=== PATIENT | female | born 1940 | race Caucasian/White ===

== ENCOUNTER 2016-08-18 11:57 | Day surgery (SDC) | payer MEDICARE, BC ==
[~2016-08-18 11:57] MED LIST: Lactated Ringers 1,000 ML IV SCH; Lidocaine 1%/Sod Bicarbonate in NS 8.4% 1 ML Syringe IV PRN; Sodium Chloride 0.9% 10 ML Syringe FLUSH PRN
--- NOTE | 2016-08-18 14:19 | PCM.PREANE ---
Preanesthetic Assessment - Physical Assessment Height: 1.63 m Weight: 97.522 kg - Allergies Allergies/Adverse Reactions: Allergies Allergy/AdvReac Type Severity Reaction Status Date / Time adhesive Allergy Unknown Rash Verified 02/28/15 05:52 latex Allergy Rash Verified 08/17/16 15:47 PreAnesthesia Questionnaire HEENT History: Reports: Other (see below) Other HEENT History: has dentures Cardiovascular History: Reports: Automatic implantable cardioverter defibrillators, CAD, Heart Failure, High cholesterol, Hypertension, Pacemaker ( AICD), PTCA (No stents inserted about 5 years ago) Other Cardiovascular History: chest pain, ischemic heart disease, pulmonary HTN , valvular heart disease, mitral regurgitation, aortic regurgitation and stenosis, ischemic cardiomyopathy, peripheral edema Respiratory History: Reports: SOB Other Respiratory History: shortness of breath with exertion Gastrointestinal History: Reports: Other (see below) Other Gastrointestinal History: polyps, tubular adenomatous colon polyps, diverticulosis Genitourinary History: Reports: Renal disease Other Genitourinary History: urinary urgency, cystocele, CKD III, chroic renal impairment Other OB/BYN History: hysterectomy Musculoskeletal History: Reports: Osteoarthritis, Other (see below) Other Musculoskeletal History: osteopenia, Left and right total hip, bilateral knee replacement Neurological History: Reports: None Psychiatric History: Reports: None Endocrine/Metabolic History: Reports: Diabetes, type II, Hypothyroidism Hematologic History: Reports: Blood transfusion(s) Immunologic History: Reports: None Oncologic (Cancer) History: Reports: Colon Dermatologic History: Reports: None - Past Surgical History HEENT Surgical History: Reports: Cataract surgery Other HEENT Surgeries/Procedures: use of dentures Cardiovascular Surgical History: Reports: AICD, Pacer GI Surgical History: Reports: Colonoscopy, Polypectomy Other GI Surgeries/Procedures: Colonoscopy with polypectomy, partial colectomy Female Surgical History: Reports: Hysterectomy Other Musculoskeletal Surgeries/Procedures:: Bilateral hip replacement, bilateral knee replacement - SUBSTANCE USE Smoking Status *Q: Never Smoker Second Hand Smoke Exposure: No Days Per Week of Alcohol Use: 0 Recreational Drug Use History: No - HOME MEDS Home Medications: Home Meds Allopurinol [Zyloprim] 100 mg PO DAILY 02/18/15 [History] Aspirin [Low Dose Aspirin EC] 81 mg PO DAILY 02/18/15 [History] Carvedilol [Coreg] 3.125 mg PO BID 02/18/15 [History] Furosemide 40 mg PO DAILY 02/18/15 [History] Levothyroxine 112 mcg PO DAILY 02/18/15 [History] Potassium Chloride 10 meq PO DAILY 02/18/15 [History] Ramipril [Altace] 10 mg PO DAILY 02/18/15 [History] buPROPion [Wellbutrin XL] 150 mg PO DAILY 02/18/15 [History] glipiZIDE [Glipizide ER] 2.5 mg PO DAILY 02/18/15 [History] Cholecalciferol (Vitamin D3) [Vitamin D3] 5,000 units PO DAILY 08/17/16 [History ] Methylcellulose [Citrucel] 500 mg PO DAILY 08/17/16 [History] atorvaSTATin [Lipitor] 10 mg PO DAILY 08/17/16 [History] - CURRENT (IN HOUSE) MEDS Current Meds: Current Medications Lactated Ringer's (Ringers, Lactated) 1,000 mls @ 125 mls/hr IV ASDIRECTED MARIANNE Stop: 08/18/16 23:00 Lidocaine/Sodium Bicarbonate (Buffered Lidocaine 1% In Ns 8.4%) 0.25 ml IV ONETIME PRN PRN Reason: Prior to IV Start Stop: 08/18/16 18:00 Sodium Chloride (Saline Flush) 10 ml FLUSH ASDIRECTED PRN PRN Reason: Keep Vein Open Stop: 08/18/16 18:00 Preanesthetic Assessment - ANESTHESIA/TRANSFUSION/FAMILY HX Anesthesia/Transfusion History: Prior Anesthesia (no problems), Prior Transfusion (no problems) Type of Anesthesia Reaction: Reports: Unknown Family History of Anesthesia Reaction: No Intubation History: Unknown Type of Transfusion Reactions: Reports: Unknown - REVIEW OF SYSTEMS Constitutional: Reports: no symptoms HIDE SORTER: Reports: no symptoms Respiratory: Reports: no symptoms Cardiovascular: Reports: blood pressure problem GI: Reports: no symptoms Other: Reports: Easy Bruising, Diabetes, Thyroid Problems (hypothyroidism ) - PHYSICAL ASSESSMENT HR: 70 O2 Sat by Pulse Oximetry: 93 RR: 18 BP: 124/58 Temp: 36.3 C Height: 1.63 m Weight: 97.522 kg NPO Status Date: 08/17/16 NPO Status Time: 22:00 ASA Class: 3 Mental Status: Alert & Oriented x3 Airway Class: Mallampati = 2 Dentition: Reports: Dentures (upper and lower ) Thyro-Mental Finger Breadths: 3 Mouth Opening Finger Breadths: 3 ROM/Head Extension: Full Respiratory Status: lungs clear to auscultation bilaterally Cardiovascular Status: regular rate & rhythm, normal S1, S2, no murmur, blood pressure WNL - ALLERGIES Allergies/Adverse Reactions: Allergies Allergy/AdvReac Type Severity Reaction Status Date / Time adhesive Allergy Unknown Rash Verified 02/28/15 05:52 latex Allergy Rash Verified 08/17/16 15:47 - BLOOD Blood Available: No Product(s) Available: None - ANESTHESIA PLAN Preop Beta Ramon: Yes Beta Ramon: Carvedilol Beta-Ramon Last Dose Date: 08/17/16 Beta-Ramon Last Dose Time: 07:00 Anesthesia Type Planned: MAC - ACKNOWLEDGEMENTS Pt an Appropriate Candidate for the Planned Anesthesia: Yes Alternatives and Risks of Anesthesia Discussed w Pt/Guardian: Yes Pt/Guardian Understands and Agrees with Anesthesia Plan: Yes
--- NOTE | 2016-08-18 14:46 | PCM.HP ---
H&P History of Present Illness - General Date of Service: 08/18/16 Admit Problem/Dx: Surveillance Colonoscopy HPI: The patient is a 75-year-old female known to the clinic. Her PCP is Dr. Priyanka Ruiz. She has a personal hx of colon cancer and colon polyps. I last saw the patient 06/21/16. she reports no major health changes since that time. She has followed up with cardiology and [facility] prior to endoscopy. she did complete the prep. Reports blood glucose was a bit higher this am at 135 due to use of fruit juice with prep. She is due for a surveillance colonoscopy. In 01/2015 hx of colonoscopy with polypectomy and findings of extensive diverticular disease of descending and sigmoid colon. Painless massive lower GI bleeding after procedure. Repeat colonoscopy after-found No obvious bleeding from polypectomy site. Small clot on large polypectomy site in the rectum. Multiple clots in descending colon, extending from diverticulum. A thrombin enema and injection of epinephrine to the rectal polypectomy site. She did receive 3 units of PRBCs. She had a tubular adenoma found on 01/[address] Mckinnon recommended a one year follow up colonoscopy. Recent colonoscopy hx: Surveillance colonoscopy 06/2013: multiple sessile polyps Surveillance colonoscopy 02/19/15: multiple tubular adenomatous colon polyps( cecal, descending, sigmoid, rectal), diverticulosis Dx of colonoscopy with injection, gold probe cautery, and thrombin enema 02/28/15 -diverticular vs. post polypectomy bleeding. The patient denies any constipation/ diarrhea/ hematochezia/ melena/blood on tissue paper/hemorrhoids. Has 1-2 soft, brown, formed, BMs daily. Bowel movements are described as regular and easy to pass. No unintentional weight loss. No change in stool caliber. Denies history of ulcerative colitis or Crohn' s disease. Denies any family history of inflammatory bowel disease or GI cancers. Last colonoscopy was 2014. Personal hx of colon cancer 1999 or 2000. No longer follows with oncology. Surgical intervention only, no chemotherapy or radiation. No history of reflux, heartburn, nausea, vomiting, or dysphagia. Last mammogram was 2015, negative. NO: Family hx of breast cancer Source of Information: Patient History Limitations: Reports: No limitations - Related Data Allergies/Adverse Reactions: Allergies Allergy/AdvReac Type Severity Reaction Status Date / Time adhesive Allergy Unknown Rash Verified 08/18/16 14:35 latex Allergy Rash Verified 08/18/16 14:35 Home Medications: Home Meds Allopurinol [Zyloprim] 100 mg PO DAILY 02/18/15 [History] Aspirin [Low Dose Aspirin EC] 81 mg PO DAILY 02/18/15 [History] Carvedilol [Coreg] 3.125 mg PO BID 02/18/15 [History] Furosemide 40 mg PO DAILY 02/18/15 [History] Levothyroxine 112 mcg PO DAILY 02/18/15 [History] Potassium Chloride 10 meq PO DAILY 02/18/15 [History] Ramipril [Altace] 10 mg PO DAILY 02/18/15 [History] buPROPion [Wellbutrin XL] 150 mg PO DAILY 02/18/15 [History] glipiZIDE [Glipizide ER] 2.5 mg PO DAILY 02/18/15 [History] Cholecalciferol (Vitamin D3) [Vitamin D3] 5,000 units PO DAILY 08/17/16 [History ] Methylcellulose [Citrucel] 500 mg PO DAILY 08/17/16 [History] atorvaSTATin [Lipitor] 10 mg PO DAILY 08/17/16 [History] Past Medical History HEENT History: Reports: Other (see below) Other HEENT History: has dentures Cardiovascular History: Reports: Automatic implantable cardioverter defibrillators, CAD, Heart Failure, High cholesterol, Hypertension, Pacemaker ( AICD), PTCA (No stents inserted about 5 years ago) Other Cardiovascular History: chest pain, ischemic heart disease, pulmonary HTN , valvular heart disease, mitral regurgitation, aortic regurgitation and stenosis, ischemic cardiomyopathy, peripheral edema Respiratory History: Reports: SOB Other Respiratory History: shortness of breath with exertion Gastrointestinal History: Reports: Other (see below) Other Gastrointestinal History: polyps, tubular adenomatous colon polyps, diverticulosis Genitourinary History: Reports: Renal disease Other Genitourinary History: urinary urgency, cystocele, CKD III, chroic renal impairment Other OB/BYN History: hysterectomy Musculoskeletal History: Reports: Osteoarthritis, Other (see below) Other Musculoskeletal History: osteopenia, Left and right total hip, bilateral knee replacement Neurological History: Reports: None Psychiatric History: Reports: None Endocrine/Metabolic History: Reports: Diabetes, type II, Hypothyroidism Hematologic History: Reports: Blood transfusion(s) Immunologic History: Reports: None Oncologic (Cancer) History: Reports: Colon Dermatologic History: Reports: None - Past Surgical History HEENT Surgical History: Reports: Cataract surgery Other HEENT Surgeries/Procedures: use of dentures Cardiovascular Surgical History: Reports: AICD, Pacer GI Surgical History: Reports: Colonoscopy, Polypectomy Other GI Surgeries/Procedures: Colonoscopy with polypectomy, partial colectomy Female Surgical History: Reports: Hysterectomy Other Musculoskeletal Surgeries/Procedures:: Bilateral hip replacement, bilateral knee replacement Social & Family History - Tobacco Use Smoking Status *Q: Never Smoker Second Hand Smoke Exposure: No - Alcohol Use Days Per Week of Alcohol Use: 0 - Recreational Drug Use Recreational Drug Use: No H&P Review of Systems - Review of Systems: Review Of Systems: See Below Free Text/Narrative: Denies any exertional chest pain. Has exertional shortness of breath. No history of any easy bleeding or bruising. No personal or familial history of clotting or bleeding disorders. No history of anesthetic complications. No history of familial anesthetic complications. Denies chest pain, palpitations. Has hx of lower extremity edema, takes extra doses of Lasix (per PCP or cardiology recommendations) and wears compression stockings. Left leg seems to swell more than right, elevated legs frequently. Cardiology and PCP are aware per patient. NO: dyspnea rest, orthopnea, claudication, wheezing, obstructive sleep apnea, chronic cough, upper respiratory symptoms in the last two weeks. No history of blood thinner use, with the exception of aspirin. The patient 4 total joint replacement. No history of seizure or stroke. No dizziness, light headedness, syncope, near syncope. No history of fever, chills, or nightsweats. Hx of prior cardiology and pulmonology evaluation. Hx of pacemaker replacement 2015. Valvular heart disease follows with cardiology. Did see [facility] and cardiology 12and 6 month follow ups recommended respectively . Device interrogation 07/13. Per cardiology note, "Her device is interrogated today. It is [employer] Viva TRUCK JUMPER-D model. It is set in DDD mode with low rate of 60, upper tracking rate of 130. She has had no ventricular episodes. She had 1 mode switch lasting less than a minute. Her atrial fibrillation (AF) burden is less than 0.1%. Elective replacement indicator (LAURA) is 7.9 years" Hx of CAD, heart block s/p pacemaker and upgrade on 05/2015 (biventricular AICD) , vavlular heart disease. Hx of Pulmonary hypertension 2017 Echo: Conclusion: 1. Left ventricular ejection fraction is 55 to 60%. 2. Impaired left ventricular relaxation with elevated LV filling pressures-( Grade I Diastolic Dysfunction). 3. Mild concentric left ventricular hypertrophy. 4. Mildly enlarged right ventricle. 5. Moderate to severely dilated left atrium. 6. Mildly dilated right atrium. 7. Mild mitral valve regurgitation. 8. Mild mitral stenosis. 9. Moderate tricuspid regurgitation. 10. Mild to moderate aortic valve stenosis. 11. Moderate aortic regurgitation. 12. Mild dilatation of the ascending aorta. 13. Moderately elevated pulmonary artery systolic pressure, estimated at 52.3 mmHg. 14. Compared to previous ECHO from May - LVEF has significantly improved , however AI is worse. General: Reports: no symptoms HEENT: Reports: no symptoms Pulmonary: Reports: No Symptoms Cardiovascular: Reports: no symptoms Gastrointestinal: Reports: No symptoms Genitourinary: Reports: no symptoms Musculoskeletal: Reports: no symptoms Skin: Reports: no symptoms Psychiatric: Reports: no symptoms Neurological: Reports: No Symptoms Hematologic/Lymphatic: Reports: no symptoms Immunologic: Reports: no symptoms Exam - Exam Exam: See Below - Vital Signs Vital Signs: Last Vital Signs Temp 36.3 C 08/18/16 14:30 Pulse 70 08/18/16 14:30 Resp 18 08/18/16 14:30 BP 124/58 L 08/18/16 14:30 Pulse Ox 93 L 08/18/16 14:30 Weight: 97.522 kg - Exam General: alert, oriented HEENT: Conjunctiva clear. No: Scleral icterus Lungs: Clear to auscultation, Normal respiratory effort Cardiovascular: regular rate, regular rhythm, normal S1, normal S2, other ( murmur) Abdomen: normal bowel sounds, soft. No: distention, tenderness Back Exam: normal inspection Extremities: normal inspection, normal pulses, edema (LLE mild/moderate). No: clubbing, cyanosis Skin: warm, dry, intact Neuro Extensive - Mental Status: alert, oriented x3, normal mood/affect, normal cognition, memory intact Psychiatric: alert, normal affect, normal mood *Q Meaningful Use (ADM) - VTE *Q VTE Criteria *Q: - Stroke *Q Stroke Criteria *Q: - AMI *Q AMI Criteria *Q: - Problem List (1) History of adenomatous polyp of colon SNOMED Code(s): 540603102 ICD Code: Z86.010 - PERSONAL HISTORY OF COLONIC POLYPS Status: Acute Current Visit: Yes (2) History of colon cancer SNOMED Code(s): 168815763 ICD Code: Z85.038 - PERSONAL HISTORY OF MALIGNANT NEOPLASM OF LARGE INTESTINE Status: Acute Current Visit: Yes (3) Diverticulosis SNOMED Code(s): 093335595 ICD Code: K57.90 - DVRTCLOS OF INTEST, PART UNSP, W/O PERF OR ABSCESS W/O BLEED Status: Acute Current Visit: Yes Problem List Initiated/Reviewed/Updated: Yes Orders Last 24hrs: Active Orders 24 hr Category Date Time Status Peripheral IV Care [RC] . DIRECTED Care 08/18/16 00:01 Active Verify Patient Consent Obtain [RC] ASDIRECTED Care 08/18/16 00:01 Active Lactated Ringers [Ringers, Lactated] 1,000 ml Med 08/18/16 00:01 Active IV ASDIRECTED Lidocaine 1%/Sod Bicarbonate [Buffered Lidocaine 1% in Med 08/18/16 00:01 Active NS 8.4%] 0.25 ml IV ONETIME PRN Sodium Chloride 0.9% [Saline Flush] Med 08/18/16 00:01 Active 10 ml FLUSH ASDIRECTED PRN Medication Administration Instruction [OM.PC] Routine Oth 08/18/16 00:01 Ordered Peripheral IV Insertion Adult [OM.PC] Routine Oth 08/18/16 00:01 Ordered Medication Orders Lactated Ringer's (Ringers, Lactated) 1,000 mls @ 125 mls/hr IV ASDIRECTED MARIANNE Stop: 08/18/16 23:00 Last Admin: 08/18/16 14:10 Dose: 125 mls/hr Lidocaine/Sodium Bicarbonate (Buffered Lidocaine 1% In Ns 8.4%) 0.25 ml IV ONETIME PRN PRN Reason: Prior to IV Start Stop: 08/18/16 18:00 Last Admin: 08/18/16 14:09 Dose: 0.25 ml Sodium Chloride (Saline Flush) 10 ml FLUSH ASDIRECTED PRN PRN Reason: Keep Vein Open Stop: 08/18/16 18:00 Assessment/Plan Comment:: 75yr female with personal hx of colon cancer, hx of tubular adenomatous colon polyps, extensive diverticular disease, need for surveillance colonoscopy. Denies exertional chest pain. Has exertional shortness of breath. Patient has AICD, ischemic heart disease, valvular heart disease, pulmonary HTN, DM PLAN: We discussed performing a surveillance colonoscopy. We discussed the procedure and post operative expectations. . This procedure will be done today at [facility], due to cardiac history, orders were placed and sent. I personally reviewed the patient's previous medical records and laboratory studies. Patient verbalized understanding and agreed with care plan. MARIELY Boo General Surgery Department [facility]
[2016-08-18] MEDS ORDERED: Propofol 200 MG/20 ML SDV ONE (14:56)
[2016-08-18] MEDS ORDERED: Lidocaine 1% 6 ML ONE (14:56)
[2016-08-18] MEDS ORDERED: fentaNYL 100 MCG/2 ML SDV ONE (14:56)
--- NOTE | 2016-08-18 16:13 | PCM48HPAN ---
Post Anesthesia Note - EVALUATION WITHIN 48HRS OF ANESTHETIC Vital Signs in Normal Range: Yes Patient Participated in Evaluation: Yes Respiratory Function Stable: Yes Airway Patent: Yes Cardiovascular Function Stable: Yes Hydration Status Stable: Yes Pain Control Satisfactory: Yes Nausea and Vomiting Control Satisfactory: Yes Mental Status Recovered: Yes
[2016-08-18 16:42] VITALS: BP 120/59
--- NOTE | 2016-08-21 11:53 | PCM.OPNOTE ---
- General Post-Op/Procedure Note Date of Surgery/Procedure: 08/18/16 Operative Procedure(s): Surveillance colonoscopy with cold forceps polypectomy Pre Op Diagnosis: History of colon polyps, diverticulosis Post-Op Diagnosis: Colon polyps, severe diverticulosis Anesthesia Technique: MAC Primary Surgeon: Annita Mckinnon Anesthesia Provider: Jigna Lemus Pathology: 1. Transverse colon polyps 3 2. Descending colon polyps 2 3. Sigmoid colon polyps 4 4. Rectal polyp Fluid Replacement, Intraop: 600 (mL crystalloid ) EBL in mLs: 1 Complications: None Condition: Good Free Text/Narrative:: INDICATION FOR PROCEDURE: The patient is a 75-year-old woman who is well known to me from colonoscopy in January 2015 with numerous colon polyps at that time. Patient also has diffuse diverticular disease. She is a patient of Dr. Priyanka Ruiz. She did experience painless GI bleeding about 3 weeks after her last procedure, I suspect that this is most likely due to diverticular bleeding as there had been no obvious bleeding from her polypectomy site when repeat colonoscopy was performed. Performing a surveillance colonoscopy and the associated risks of the procedure had been discussed with the patient. The patient found these risks acceptable and agreed to proceed. DESCRIPTION OF PROCEDURE: A digital rectal exam was performed which was unremarkable. A pediatric Olympus colonoscope was inserted into the rectum and guided under direct visualization to the appendiceal orifice and ileocecal valve. The scope was then slowly withdrawn through the colon. The quality of the prep was excellent. Multiple diminutive colon polyps were noted. 3 diminutive polyps were removed from the transverse colon using cold forceps, all were sessile. 2 sessile diminutive descending colon polyps were removed using cold forceps. 4 diminutive sessile sigmoid colon polyps removed using cold forceps. One diminutive sessile rectal polyp was removed using cold forceps. Moderately severe diverticulosis was present within the sigmoid colon. There were scattered diverticulum in the remainder of the colon. There was no evidence of angiodysplasias.. The scope was withdrawn into the rectum and retroflexed. There was no significant prominence of the patient's internal hemorrhoids. The scope was straightened, the colon was desufflated, and the scope was withdrawn. The patient was awakened from sedation and transferred to the recovery room in stable condition having tolerated the procedure well. POSTOPERATIVE PLAN: I discussed with the patient's daughter my intraoperative findings and recommendations. She will follow up in 1-2 weeks to discuss pathology and timing of the next endoscopy.
== END 2016-08-18 16:41 | disposition home or self-care (01) ==
LOC: JD.SDS 11:57
PROVIDERS: ATTEND Surgery
DX: Z12.11 Encounter for screening for malignant neoplasm of colon (principal); D12.2 Benign neoplasm of ascending colon; D12.3 Benign neoplasm of transverse colon; D12.4 Benign neoplasm of descending colon; D12.5 Benign neoplasm of sigmoid colon; K62.1 Rectal polyp; K57.30 Diverticulosis of large intestine without perforation or abscess without bleeding; Z91.09 Other allergy status, other than to drugs and biological substances; Z91.040 Latex allergy status; Z79.82 Long term (current) use of aspirin; Z79.899 Other long term (current) drug therapy; E11.22 Type 2 diabetes mellitus with diabetic chronic kidney disease; I12.9 Hypertensive chronic kidney disease with stage 1 through stage 4 chronic kidney disease, or unspecified chronic kidney disease; N18.3 Chronic kidney disease, stage 3 (moderate); E03.9 Hypothyroidism, unspecified; Z90.710 Acquired absence of both cervix and uterus; Z96.643 Presence of artificial hip joint, bilateral; Z96.653 Presence of artificial knee joint, bilateral; Z95.0 Presence of cardiac pacemaker
CPT/HCPCS: 45380; 82962; J3010; J7120; 00810; 88305; J2704